=== PATIENT | male | born 1965 | race Caucasian/White ===

== ENCOUNTER 2024-09-24 22:15 | Emergency (ER) | payer OTHER, SELFPAY ==
[2024-09-24 22:27] VITALS: BP 143/74; PULSE 51; TEMP 37.1; O2SAT 95; BMI 29.8
--- OUTSIDE RECORDS SUMMARY | 2024-09-24 22:36 | XMS_ITS | Clinical Summary ---
Author Organization [employer] [facility] tem Address [id number] [address] [place] [address] Care Team Providers Care Dielectric Machine Operator Name Role Phone Nury Ren PIPE FINISHER-MANAGER MARKETING Primary Care Provide r Allergies No known active allergies Medications lisinopriL (PRINIVIL,ZESTRI L) 20 mg tablet Take 20 mg by mouth daily. Active atorvastatin (LIPITOR) 10 mg tablet Take 10 mg by mouth daily. Active metoprolol succinate XL (TOPROL-XL) 50 mg 24 hr tablet Take 50 mg by mouth daily. Active metFORMIN (GLUCOPHAGE) 500 mg tablet Take 1 tablet by mouth 2 (two) times a day. Active aspirin 81 mg Take 81 mg by mouth daily. Active Active Problems Problem Noted Date Diagnosed Date GIULIANO (acute kidney injury) 08/20/2016 Social History Tobacco Use Types Packs/Day Years Used Date Smoking Tobacco: Every Day Cigarettes 1.5 40 Smokeless Tobacco: Never Alcohol Use Standard Drinks/Week Comments No 0 (1 standard drink = 0.6 oz pur e alcohol) Childcare Answer Date Recorded Childcare Unknown 07/26/2018 Employment Answer Date Recorded Employment Unknown 07/26/2018 Purpose - Life Answer Date Recorded Purpose and direction in life Unknown Sex and Gender Information Value Date Recorded Sex Assigned at Not on file Legal Sex Male 2:23 PM EDT Gender Identity Not on file Sexual Orientation Not on file Last Filed Vital Signs Vital Sign Reading Time Taken Comments Blood Pressure 151/84 10/06/2020 4:30 PM EDT Pulse 64 10/06/2020 4:30 PM EDT Temperature 36.9 C (98.4 F) 10/06/2020 4:30 PM EDT Respiratory Rate 18 10/06/2020 4:30 PM EDT Oxygen Saturation 96% 10/06/2020 4:30 PM EDT Inhaled Oxygen Concentration - - Weight 105.2 kg (232 lb) 10/06/2020 4:30 PM EDT Height 175.3 cm (5' 9 ) 10/06/2020 4:30 PM EDT Body Mass Index 34.26 10/06/2020 4:30 PM EDT Plan of Treatment Not on file Medical Devices Not on file Insurance [employer] Advance Directives * Full Code (Latest Code Status on File) Date Activated Date Inactivated Comments 08/20/2016 9:49 PM 08/21/2016 5:22 PM Care Teams Dielectric Machine Operator Relationship Specialty Start Date End Date Nury Ren, PIPE FINISHER-MANAGER MARKETING PCP - General 10/06/20
--- OUTSIDE RECORDS SUMMARY | 2024-09-24 22:36 | XMS_ITS | Clinical Summary ---
Author Organization [facility] Address [address] [place] [address] Care Team Providers Care Asphalt Surface Heater Operator Name Role Phone Carito Noble CNP Primary Care Provider [phone] Allergies No known active allergies Medications glipiZIDE 5 MG tablet XL Take 1 tablet by mouth daily. 10/28/2022 Active lisinopril-hydro chlorothiazide 20-12.5 MG per tablet Take 1 tablet by mouth 2 times daily. 03/10/2023 Active Atorvastatin 40 MG tablet Take 1 tablet by mouth every evening. 01/28/2023 Active carveDILOL 25 MG tablet Take 1 tablet by mouth 2 times daily. 09/11/2022 Active Aspirin [address] tablet Take 1 tablet by mouth daily. 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 Family History Medical History Relation Name Comments Myocardial Infarction Father Stroke Father Relation Name Status Comments Father Social History Tobacco Use Types Packs/Day Years Used Date Smoking Tobacco: Every Day Cigarettes 1 45.6 Started: 1981 Smokeless Tobacco: Never Tobacco Cessation:Ready to Q uit: Not Asked; Counseling Given: Not Answered Alcohol Use Standard Drinks/Week Comments Not Currently 0 (1 standard drink = 0.6 oz pur e alcohol) Sex and Gender Information Value Date Recorded Sex Assigned at Not on file Legal Sex Male 2:53 PM EST Gender Identity Not on file Sexual Orientation Not on file Last Filed Vital Signs Vital Sign Reading Time Taken Comments Blood Pressure 132/63 2023 3:30 PM EDT Pulse 54 2023 5:00 PM EDT Temperature 36.8 C (98.3 F) 2023 6:01 AM EDT Respiratory Rate 24 2023 5:00 PM EDT Oxygen Saturation 94% 2023 3:30 PM EDT Inhaled Oxygen Concentration - - Weight 93.9 kg (207 lb) 2023 5:50 AM EDT Height 175.3 cm (5' 9 ) 2023 5:50 AM EDT Body Mass Index 30.57 2023 5:50 AM EDT Plan of Treatment Health Maintenance Due Date Last Done Comments HEPATITIS C VIRUS SCREENING 1963 TETANUS 1963 HIV SCREENING DISCUSSION 11/03/1978 TDAP (ADULT) 11/03/1982 LIPID SCREENING 2003 PNEUMOCOCCAL VACCINE SERIES (2 of 2 - PCV) 10/06/2013 10/06/2012 LUNG CANCER SCREENING 11/03/2013 ZOSTER (SHINGLES) VACCINE (1 of 2) 11/03/2013 PROSTATE CANCER SCREENING DISCUSSION 11/03/2018 COVID-19 VACCINE (1 - 2023-2 5 season) 2023 COLORECTAL CANCER SCREENING DISCUSSION 01/17/2024 01/16/2023 INFLUENZA VACCINE (#1) 2024 04/21/2013 RSV VACCINE (1 - 1-dose 75+ series) 11/03/2038 PNEUMOCOCCAL VACCINE SERIES Discontinued 10/06/2012 POTASSIUM Discontinued 2023 HEP B VACCINE Aged Out No longer elig ibmonie based on patient's age to complete this topic Medical Devices Implanted Type Area Applications Engineer Device Identifier Shelf Expiration Date Model / Serial / Lot Lead Pcng [id number] Ecrdl Etak - [id number] Implanted:Qty: 1 on 2023 by Valentino Mckeon MBBS at [facility] Lead N/A: Heart [employer] 01/19/2025 [id number] / [id number] / Explanted Type Area Applications Engineer Device Identifier Shelf Expiration Date Model / Serial / Lot Lead Pacing 64cm 9fr Endocardial Endotak Zarephath S [id number] - [id number] Explanted:Qty: 1 on 2023 at [facility] Lead N/A: Heart [employer] [id number] / [id number] / Procedures Procedure Name Priority Date/Time Associated Diagnosis Comments CHEM 7 (LYTES,BUN,CREA,GLU C) STAT 2023 5:48 AM EDT from Last 3 Months or Most Recently Relevant to Health Maintenance Results * (ABNORMAL) CHEM 7 (LYTES,BUN,CREA,GLUC) (2023 5:48 AM EDT) Sodium 138 135 - 145 mmol/L 2023 6:41 AM EDT [facility] Potassium 4.1 3.5 - 5.0 mmol/L 2023 6:41 AM EDT [facility] Chloride 105 98 - 108 mmol/L 2023 6:41 AM EDT [facility] CO2 26 21 - 31 mmol/L 2023 6:41 AM EDT [facility] Glucose 92 70 - 99 mg/dL 2023 6:41 AM T [facility] BUN 30(H) 7 - 25 mg/dL 2023 6:41 AM EDT [facility] Creatinine 1.06 0.70 - 1.30 mg/dL 2023 6:41 AM EDT [facility] Bun/Crea Ratio 28 2023 6:41 AM EDT [facility] Osmolality (Calculated) 295 278 - 305 mOsm/kg 2023 6:41 AM EDT [facility] Anion Gap 11 7 - 17 mmol/L 2023 6:41 AM EDT [facility] eGFR, CKD-EPI, Male 80 >=60 mL/min/1.7 3m2 2023 6:41 AM EDT [facility] Comment:Reported eGFR is bas ed on the CKD-EPI 2020 equation using creatinine, age, and sex. Blood Venipuncture / Unknown 2023 5:48 AM EDT 2023 6:13 AM EDT us Denise Elder COMMUNICATIONS ADMINISTRATOR-SIGN CARPENTER CHEMISTRY ORDERABLES Zuleyka granados Result [facility] [address] [place] [address] from Last 3 Months or Most Recently Relevant to Health Maintenance Insurance [facility] Advance Directives For more information, please contact: [phone] (7:30 AM - 6PM [facility], Thursday-Thursday) * Full Code (Latest Code Status on File) Date Activated Date Inactivated Comments 2023 10:24 AM Care Teams Asphalt Surface Heater Operator Relationship Specialty Start Date End Date Carito Noble CNP PCP - General Family Medicine 08/06/23
[2024-09-24] MEDS: HYDROCODONE/ACET 5-325 MG TABLET 1 TAB PO (22:47)
--- NOTE | 2024-09-24 23:40 | ED.GENADUL1 ---
HPI HPI - General Adult General Chief complaint: Extremity Injury, Lower Stated complaint: Lower Injury Time Seen by Provider: 09/24/24 22:16 Source: patient Mode of arrival: Wheelchair Limitations: no limitations History of Present Illness HPI narrative: Patient is a 58-year-old male presenting to the emergency department for concerns of a right foot injury. Patient was at work earlier tonight when a large, 1500 pound cart rolled over his right foot. He felt immediate pain on the dorsum of the foot, but was able to bear weight and ambulate after the incident. After experiencing increasing pain, he decided to come to the ED for evaluation. He denies any other associated injuries. He denies any numbness or tingling in the foot. He denies any loss of range of motion in the foot or ankle. Related Data Home Medications ?Medication ?Instructions ?Recorded ?Confirmed aspirin 81 mg tablet,delayed 81 mg PO DAILY 09/24/24 09/24/24 release (Adult Aspirin Regimen) atorvastatin 40 mg tablet 40 mg PO DAILY 09/24/24 09/24/24 carvedilol 25 mg tablet 25 mg PO BID 09/24/24 09/24/24 glipizide 2.5 mg tablet 2.5 mg PO DAILY 09/24/24 09/24/24 lisinopril 20 1 tab PO BID 09/24/24 09/24/24 mg-hydrochlorothiazide 12.5 mg tablet Allergies Allergy/AdvReac Type Severity Reaction Status Date / Time No Known Drug Allergies Allergy Verified 09/24/24 22:33 Opioid HPI Opioid Management Most Recent Opioid Data: Last Pain Scale 10 Today, 23:38 Last ED Pain Assessment Today, 23:38 Last MAR Pain Assessment Today, 22:47 Review of Systems ROS Status of ROS 10 or more systems reviewed and unremarkable except as noted in history and below PFSH PFSH Social History Little interest or pleasure in doing things: not at all Feeling down, depressed, or hopeless: not at all Exam Narrative Exam Narrative: CONSTITUTIONAL: Well-appearing, answering questions and following commands appropriately SKIN: Was warm and dry. EYES: Sclerae white. EARS, NOSE, THROAT: Moist oral mucosa. RESPIRATORY: Nonlabored respirations. CARDIOVASCULAR: 2+ DP pulses on the right. GASTROINTESTINAL: Abdomen is nondistended. MUSCULOSKELETAL: There is mild soft tissue swelling and tenderness to palpation over the medial aspect of the dorsum of the right foot. The foot is warm and well-perfused. He is full range of motion the foot and ankle. He is able to wiggle his toes. No tenderness at the bilateral malleoli. No tenderness at the base of the fifth metatarsal. No tenderness at the fibular head. Compartments are soft and compressible. NEUROLOGIC: Patient is awake and alert. Sensation tact light touch throughout the right foot. Good strength in the right foot/ankle, mildly limited by pain. Constitutional Vital Signs, click to edit/add: Last Vital Signs Temp 98.7 F 09/24/24 22:27 Pulse 51 L 09/24/24 22:27 Resp 16 09/24/24 22:27 BP 143/74 H 09/24/24 22:27 Pulse Ox 95 09/24/24 22:27 O2 Del Method Room Air 09/24/24 22:27 Course Vital Signs Vital signs: Vital Signs Temperature 98.7 F 09/24/24 22:27 Pulse Rate 51 L 09/24/24 22:27 Respiratory Rate 16 09/24/24 22:27 Blood Pressure 143/74 H 09/24/24 22:27 Pulse Oximetry 95 09/24/24 22:27 Oxygen Delivery Method Room Air 09/24/24 22:27 Temperature 98.7 F 09/24/24 22:27 Pulse Rate 51 L 09/24/24 22:27 Respiratory Rate 16 09/24/24 22:27 Blood Pressure 143/74 H 09/24/24 22:27 Pulse Oximetry 95 09/24/24 22:27 Oxygen Delivery Method Room Air 09/24/24 22:27 Medical Decision Making MDM Narrative Medical decision making narrative: Patient is a 58-year-old male presenting to the emergency department for evaluation of a right foot injury while at work. Vital signs on arrival are within normal limits. He is afebrile and hemodynamically stable. Examination was notable for tenderness to palpation over the medial aspect of the dorsum of the right foot with mild soft tissue swelling. The foot is neurovascularly intact with good strength, sensation, and perfusion. Differential diagnosis includes right foot fracture, bony contusions, foot sprain. X-ray of the right foot were ordered. He was given [place] for pain. X-ray of the right foot independent reviewed/interpreted by myself demonstrated possible right navicular bone fracture, which does not appear to be significantly displaced. The patient has been waiting in the emergency department for an hour and a half still waiting for radiology to read the x-ray. I did elect to treat the patient as if he has a fracture and placed the patient in a CAM boot. He was instructed to be nonweightbearing until he can follow-up with podiatry, ideally within the next 5 to 7 days. I did explain that I will call him with the results of the radiology reads if they vary from my interpretation. Return precautions were given including any new or concerning symptoms. Patient understands and agrees with plan. Imaging Data foot xray: Attestation: I personally reviewed and interpreted this imaging study as follows: Discharge Plan Discharge Chief Complaint: Extremity Injury, Lower Clinical Impression: Closed navicular fracture of right foot Qualifiers: Encounter type: initial encounter Patient Disposition: Home, Self-Care Time of Disposition Decision: 23:42 Condition: Good Mode of Transportation: Private Vehicle Prescriptions / Home Meds: No Action atorvastatin 40 mg tablet 40 mg PO DAILY lisinopril-hydrochlorothiazide 20-12.5 mg tablet 1 tab PO BID carvedilol 25 mg tablet 25 mg PO BID Rx Instructions: must administer with a meal/food glipizide 2.5 mg tablet 2.5 mg PO DAILY aspirin [Adult Aspirin Regimen] 81 mg tablet,delayed release (DR/EC) 81 mg PO DAILY Print Language: Bangladeshi Instructions: Foot Fracture in Adults (ED) Referrals: WAN MCCAIN CNP [Primary Care Provider] - 1 week Madi Agee DPM [Physician, Podiatry] - As soon as possible
== END 2024-09-25 00:10 | disposition home or self-care (01) ==
PROVIDERS: Emergency Provider Student in an Organized Health Care Education/Training Program; PCP Nurse Practitioner Family
DX: S97.81XA Crushing injury of right foot, initial encounter (principal); W23.1XXA Caught, crushed, jammed, or pinched between stationary objects, initial encounter; M79.671 Pain in right foot; M79.89 Other specified soft tissue disorders
CPT/HCPCS: 73630; 99283